=== PATIENT | female | born 1950 | race Caucasian/White ===

== ENCOUNTER 2020-11-09 19:44 | Inpatient (IN) | payer MEDICARE, MEDICAID ==
[~2020-11-09] VITALS: Ht 167.6 cm; Wt 59.8 kg
[2020-11-09] MEDS ORDERED: ONDANSETRON ODT 4 MG PO PRN (21:00)
[2020-11-09] MEDS ORDERED: BISACODYL 10 MG SUPP PR PRN (21:00)
[2020-11-09] MEDS ORDERED: POLYETHYLENE GLYCOL 17 GM PACKET PO PRN (21:00)
[2020-11-09 22:39] VITALS: BP 200/79
[2020-11-10] MEDS ORDERED: ALBUTEROL HFA 90 MCG/SPRAY INH PRN (01:00)
[2020-11-10 06:09] LABS: CHOL/HDL RATIO 2.6; FREE T4 (FREE THYROXINE) 0.9 ng/dL (0.76-1.46); LDL/HDL RATIO 1.3 (0.5-3.0)
[2020-11-10 07:47] VITALS: BP 180/93
[2020-11-10 08:47] LABS: MICROSCOPIC INDICATED
[2020-11-10] MEDS: AMLODIPINE 5 MG TABLET PO SCH (09:20)
[2020-11-10 11:04] LABS: BASOPHILS % (AUTO) 1 % (0-1); EOSINOPHILS % (AUTO) 1 % (1-7); LYMPHOCYTES % (AUTO) 16 % (22-44); MEAN CORPUSCULAR HEMOGLOBIN 35.4 pg (27.0-34.8); MEAN CORPUSCULAR HGB CONC 33.1 g/dL (32.4-35.8); MEAN PLATELET VOLUME 8.5 fL (7.4-10.4); MONOCYTES % (AUTO) 14 % (2-9); NEUTROPHILS % (AUTO) 68 % (42-75); PLATELET COUNT 200 x10^3/uL (130-400); RED BLOOD COUNT 3.81 x10^6/uL (3.82-5.3); RED CELL DISTRIBUTION WIDTH 19.5 % (9.6-15.2)
[2020-11-10 11:15] LABS: ALANINE AMINOTRANSFERASE 37 U/L (12-78); ALBUMIN 2.8 g/dL (3.4-5.0); ANION GAP 4 mmol/L (5-15); CALCIUM 8.7 mg/dL (8.5-10.1); CHLORIDE 110 mmol/L (98-107); CREATININE 1.06 mg/dL (0.55-1.02)
[2020-11-10 11:18] LABS: ALKALINE PHOSPHATASE 71 U/L (45-117); BILIRUBIN,TOTAL 0.4 mg/dL (0.2-1.0); TOTAL PROTEIN 6.2 g/dL (6.4-8.2)
[2020-11-10 11:31] LABS: MD SCAN
[2020-11-10] MEDS: VENLAFAXINE XR 37.5MG CAP.ER.24H PO SCH (17:00)
[2020-11-10 20:06] VITALS: BP 162/89
[2020-11-11 07:28] VITALS: BP 173/69
[2020-11-11] MEDS: VENLAFAXINE XR 37.5MG CAP.ER.24H PO SCH (08:06)
[2020-11-11] MEDS: AMLODIPINE 5 MG TABLET PO SCH (08:06)
[2020-11-11] MEDS: NICOTINE 14MG/24 HR PATCH.TD24 TD SCH (08:07)
[2020-11-11] MEDS ORDERED: AMLODIPINE 5 MG TABLET PO ONE (11:30)
[2020-11-11] MEDS ORDERED: LISINOPRIL 20 MG TABLET PO SCH (11:30)
[2020-11-11] MEDS ORDERED: AMLODIPINE 5 MG TABLET ONE (11:33)
[2020-11-11] MEDS ORDERED: LISINOPRIL 20 MG TABLET ONE (11:33)
[2020-11-11 13:08] VITALS: BP 157/69
[2020-11-11 20:12] VITALS: BP 151/84
[2020-11-12 07:01] VITALS: BP 152/72
[2020-11-12] MEDS: AMLODIPINE 10 MG TAB PO SCH (08:04)
[2020-11-12] MEDS: VENLAFAXINE XR 37.5MG CAP.ER.24H PO SCH (08:04)
[2020-11-12] MEDS: LISINOPRIL 40 MG TABLET PO SCH (08:05)
[2020-11-12] MEDS: NICOTINE 14MG/24 HR PATCH.TD24 TD SCH (08:05)
[2020-11-12] MEDS: CYANOCOBALAMIN 1,000 MCG TABLET PO SCH (08:05)
[2020-11-12 20:00] VITALS: BP 136/77
[2020-11-13 07:46] VITALS: BP 118/70
[2020-11-13] MEDS: LISINOPRIL 40 MG TABLET PO SCH (08:11)
[2020-11-13] MEDS: VENLAFAXINE XR 37.5MG CAP.ER.24H PO SCH (08:11)
[2020-11-13] MEDS: CYANOCOBALAMIN 1,000 MCG TABLET PO SCH (08:11)
[2020-11-13] MEDS: AMLODIPINE 10 MG TAB PO SCH (08:11)
[2020-11-13] MEDS: NICOTINE 14MG/24 HR PATCH.TD24 TD SCH (08:12)
[2020-11-13 19:57] VITALS: BP 116/70
[2020-11-14 07:55] VITALS: BP 123/75
[2020-11-14] MEDS: NICOTINE 14MG/24 HR PATCH.TD24 TD SCH (08:49)
[2020-11-14] MEDS: LISINOPRIL 40 MG TABLET PO SCH (08:49)
[2020-11-14] MEDS: VENLAFAXINE XR 37.5MG CAP.ER.24H PO SCH (08:49)
[2020-11-14] MEDS: CYANOCOBALAMIN 1,000 MCG TABLET PO SCH (08:49)
[2020-11-14] MEDS: AMLODIPINE 10 MG TAB PO SCH (08:49)
[2020-11-14 19:40] VITALS: BP 124/71
[2020-11-15 07:49] VITALS: BP 155/78
[2020-11-15] MEDS: VENLAFAXINE XR 37.5MG CAP.ER.24H PO SCH (08:32)
[2020-11-15] MEDS: AMLODIPINE 10 MG TAB PO SCH (08:32)
[2020-11-15] MEDS: LISINOPRIL 40 MG TABLET PO SCH (08:32)
[2020-11-15] MEDS: NICOTINE 14MG/24 HR PATCH.TD24 TD SCH (08:32)
[2020-11-15] MEDS: CYANOCOBALAMIN 1,000 MCG TABLET PO SCH (08:32)
[2020-11-15] MEDS ORDERED: BICILLIN-LA 2,400,000 UNITS/4 ML IM SCH (09:30)
[2020-11-15] MEDS: BICILLIN-LA 2,400,000 UNITS/4 ML IM SCH (12:17)
[2020-11-15 20:01] VITALS: BP 124/73
[2020-11-16 07:52] VITALS: BP 127/57
[2020-11-16] MEDS: NICOTINE 14MG/24 HR PATCH.TD24 TD SCH (09:13)
[2020-11-16] MEDS: VENLAFAXINE XR 37.5MG CAP.ER.24H PO SCH (09:14)
[2020-11-16] MEDS: AMLODIPINE 10 MG TAB PO SCH (09:14)
[2020-11-16] MEDS: CYANOCOBALAMIN 1,000 MCG TABLET PO SCH (09:14)
[2020-11-16] MEDS: LISINOPRIL 40 MG TABLET PO SCH (09:14)
[2020-11-16 19:13] VITALS: BP 108/68
[2020-11-17 07:53] VITALS: BP 109/75
[2020-11-17] MEDS: AMLODIPINE 10 MG TAB PO SCH (08:27)
[2020-11-17] MEDS: NICOTINE 14MG/24 HR PATCH.TD24 TD SCH (08:27)
[2020-11-17] MEDS: VENLAFAXINE XR 37.5MG CAP.ER.24H PO SCH (08:28)
[2020-11-17] MEDS: CYANOCOBALAMIN 1,000 MCG TABLET PO SCH (08:28)
[2020-11-17] MEDS: LISINOPRIL 40 MG TABLET PO SCH (08:28)
[2020-11-17] MEDS: DOCUSATE 100 MG CAPSULE PO PRN (13:59)
[2020-11-17 19:57] VITALS: BP 117/73
[2020-11-18 07:49] VITALS: BP 122/72
[2020-11-18] MEDS: LISINOPRIL 40 MG TABLET PO SCH (08:29)
[2020-11-18] MEDS: DOCUSATE 100 MG CAPSULE PO PRN (08:29)
[2020-11-18] MEDS: NICOTINE 14MG/24 HR PATCH.TD24 TD SCH (08:29)
[2020-11-18] MEDS: VENLAFAXINE XR 37.5MG CAP.ER.24H PO SCH (08:30)
[2020-11-18] MEDS: AMLODIPINE 10 MG TAB PO SCH (08:30)
[2020-11-18] MEDS: CYANOCOBALAMIN 1,000 MCG TABLET PO SCH (08:30)
[2020-11-18 19:57] VITALS: BP 115/78
[2020-11-19 07:06] VITALS: BP 101/68
[2020-11-19] MEDS: AMLODIPINE 10 MG TAB PO SCH (08:22)
[2020-11-19] MEDS: VENLAFAXINE XR 37.5MG CAP.ER.24H PO SCH (08:22)
[2020-11-19] MEDS: LISINOPRIL 40 MG TABLET PO SCH (08:22)
[2020-11-19] MEDS: CYANOCOBALAMIN 1,000 MCG TABLET PO SCH (08:23)
[2020-11-19] MEDS: NICOTINE 14MG/24 HR PATCH.TD24 TD SCH (08:23)
[2020-11-19 19:06] VITALS: BP 99/63
[2020-11-19] MEDS: DOCUSATE 100 MG CAPSULE PO PRN (20:47)
[2020-11-19] MEDS: QUETIAPINE 25MG TABLET PO PRN (21:08)
[2020-11-20] MEDS: DOCUSATE 100 MG CAPSULE PO PRN (08:22)
[2020-11-20] MEDS: CYANOCOBALAMIN 1,000 MCG TABLET PO SCH (08:22)
[2020-11-20] MEDS: VENLAFAXINE XR 37.5MG CAP.ER.24H PO SCH (08:22)
[2020-11-20] MEDS: NICOTINE 14MG/24 HR PATCH.TD24 TD SCH (08:22)
[2020-11-20] MEDS: AMLODIPINE 10 MG TAB PO SCH (08:22)
[2020-11-20] MEDS: QUETIAPINE 25MG TABLET PO PRN (08:22)
[2020-11-20] MEDS: LISINOPRIL 40 MG TABLET PO SCH (08:23)
[2020-11-20 19:50] VITALS: BP_SYST 101; BP_SYST 113; BP_DIAS 67; BP_DIAS 80
[2020-11-21 07:52] VITALS: BP 112/69
[2020-11-21] MEDS: AMLODIPINE 10 MG TAB PO SCH (08:02)
[2020-11-21] MEDS: CYANOCOBALAMIN 1,000 MCG TABLET PO SCH (08:02)
[2020-11-21] MEDS: NICOTINE 14MG/24 HR PATCH.TD24 TD SCH (08:02)
[2020-11-21] MEDS: LISINOPRIL 40 MG TABLET PO SCH (08:02)
[2020-11-21] MEDS: VENLAFAXINE XR 37.5MG CAP.ER.24H PO SCH (08:02)
[2020-11-21 19:47] VITALS: BP 103/68
[2020-11-22 07:10] VITALS: BP 98/63
[2020-11-22] MEDS: VENLAFAXINE XR 37.5MG CAP.ER.24H PO SCH (08:42)
[2020-11-22] MEDS: NICOTINE 14MG/24 HR PATCH.TD24 TD SCH (08:42)
[2020-11-22] MEDS: AMLODIPINE 10 MG TAB PO SCH (08:42)
[2020-11-22] MEDS: LISINOPRIL 40 MG TABLET PO SCH (08:42)
[2020-11-22] MEDS: CYANOCOBALAMIN 1,000 MCG TABLET PO SCH (08:42)
[2020-11-22] MEDS: DOCUSATE 100 MG CAPSULE PO PRN (08:53)
[2020-11-22] MEDS: BICILLIN-LA 2,400,000 UNITS/4 ML IM SCH (14:41)
[2020-11-22 18:23] VITALS: BP 124/79
[2020-11-22] MEDS: QUETIAPINE 25MG TABLET PO PRN (20:42)
[2020-11-22] MEDS: ACETAMINOPHEN 325 MG TABLET PO PRN (22:40)
[2020-11-23 07:57] VITALS: BP 108/70
[2020-11-23] MEDS: AMLODIPINE 10 MG TAB PO SCH (09:00)
[2020-11-23] MEDS: VENLAFAXINE XR 37.5MG CAP.ER.24H PO SCH (09:14)
[2020-11-23] MEDS: CYANOCOBALAMIN 1,000 MCG TABLET PO SCH (09:14)
[2020-11-23] MEDS: LISINOPRIL 40 MG TABLET PO SCH (09:14)
[2020-11-23] MEDS: NICOTINE 14MG/24 HR PATCH.TD24 TD SCH (09:15)
[2020-11-23] MEDS: DOCUSATE 100 MG CAPSULE PO PRN ×2 (09:20→20:22)
[2020-11-23] MEDS: QUETIAPINE 25MG TABLET PO PRN ×2 (09:31→20:22)
[2020-11-23 19:30] VITALS: BP 100/61
[2020-11-23] MEDS: ACETAMINOPHEN 325 MG TABLET PO PRN (20:22)
[2020-11-24 07:37] VITALS: BP 99/66
[2020-11-24] MEDS: NICOTINE 14MG/24 HR PATCH.TD24 TD SCH (09:01)
[2020-11-24] MEDS: AMLODIPINE 10 MG TAB PO SCH (09:02)
[2020-11-24] MEDS: VENLAFAXINE XR 37.5MG CAP.ER.24H PO SCH (09:02)
[2020-11-24] MEDS: CYANOCOBALAMIN 1,000 MCG TABLET PO SCH (09:02)
[2020-11-24] MEDS: LISINOPRIL 40 MG TABLET PO SCH (09:02)
[2020-11-24] MEDS: DOCUSATE 100 MG CAPSULE PO PRN (09:05)
[2020-11-24 19:39] VITALS: BP 101/65
[2020-11-24] MEDS: QUETIAPINE 25MG TABLET PO PRN (21:28)
[2020-11-25 07:19] VITALS: BP 106/66
[2020-11-25] MEDS: CYANOCOBALAMIN 1,000 MCG TABLET PO SCH (08:48)
[2020-11-25] MEDS: LISINOPRIL 40 MG TABLET PO SCH (08:48)
[2020-11-25] MEDS: VENLAFAXINE XR 37.5MG CAP.ER.24H PO SCH (08:48)
[2020-11-25] MEDS: AMLODIPINE 10 MG TAB PO SCH (08:48)
[2020-11-25] MEDS: NICOTINE 14MG/24 HR PATCH.TD24 TD SCH (08:49)
[2020-11-25] MEDS: QUETIAPINE 25MG TABLET PO PRN (09:11)
[2020-11-25 18:22] VITALS: BP 109/64
[2020-11-26 07:47] VITALS: BP 105/66
[2020-11-26] MEDS: LISINOPRIL 40 MG TABLET PO SCH (08:00)
[2020-11-26] MEDS: AMLODIPINE 10 MG TAB PO SCH (08:00)
[2020-11-26] MEDS: VENLAFAXINE XR 37.5MG CAP.ER.24H PO SCH (08:00)
[2020-11-26] MEDS: CYANOCOBALAMIN 1,000 MCG TABLET PO SCH (08:01)
[2020-11-26] MEDS: NICOTINE 14MG/24 HR PATCH.TD24 TD SCH (08:01)
[2020-11-26] MEDS: QUETIAPINE 25MG TABLET PO PRN ×2 (09:29→21:16)
[2020-11-26 19:35] VITALS: BP 107/72
[2020-11-27 07:10] VITALS: BP 119/75
[2020-11-27] MEDS: VENLAFAXINE XR 37.5MG CAP.ER.24H PO SCH (07:37)
[2020-11-27] MEDS: LISINOPRIL 40 MG TABLET PO SCH (07:37)
[2020-11-27] MEDS: CYANOCOBALAMIN 1,000 MCG TABLET PO SCH (07:37)
[2020-11-27] MEDS: AMLODIPINE 10 MG TAB PO SCH (07:37)
[2020-11-27] MEDS: NICOTINE 14MG/24 HR PATCH.TD24 TD SCH (07:38)
[2020-11-27] MEDS: QUETIAPINE 25MG TABLET PO PRN ×2 (10:08→20:48)
[2020-11-27 19:45] VITALS: BP 108/72
[2020-11-28 07:53] VITALS: BP 100/67
[2020-11-28] MEDS: LISINOPRIL 40 MG TABLET PO SCH (08:25)
[2020-11-28] MEDS: AMLODIPINE 10 MG TAB PO SCH (08:25)
[2020-11-28] MEDS: VENLAFAXINE XR 37.5MG CAP.ER.24H PO SCH (08:25)
[2020-11-28] MEDS: NICOTINE 14MG/24 HR PATCH.TD24 TD SCH (08:26)
[2020-11-28] MEDS: CYANOCOBALAMIN 1,000 MCG TABLET PO SCH (08:26)
[2020-11-28] MEDS: QUETIAPINE 25MG TABLET PO PRN ×2 (08:54→20:39)
[2020-11-28 20:05] VITALS: BP 100/64
[2020-11-29 07:08] VITALS: BP 95/63
[2020-11-29] MEDS: NICOTINE 14MG/24 HR PATCH.TD24 TD SCH (08:40)
[2020-11-29] MEDS: LISINOPRIL 40 MG TABLET PO SCH (08:40)
[2020-11-29] MEDS: AMLODIPINE 10 MG TAB PO SCH (08:40)
[2020-11-29] MEDS: VENLAFAXINE XR 37.5MG CAP.ER.24H PO SCH (08:40)
[2020-11-29] MEDS: CYANOCOBALAMIN 1,000 MCG TABLET PO SCH (08:43)
[2020-11-29] MEDS: QUETIAPINE 25MG TABLET PO PRN ×2 (10:20→21:15)
[2020-11-29 19:30] VITALS: BP 100/60
[2020-11-30 07:48] VITALS: BP 111/73
[2020-11-30] MEDS: CYANOCOBALAMIN 1,000 MCG TABLET PO SCH (08:40)
[2020-11-30] MEDS: AMLODIPINE 10 MG TAB PO SCH (08:40)
[2020-11-30] MEDS: VENLAFAXINE XR 37.5MG CAP.ER.24H PO SCH (08:40)
[2020-11-30] MEDS: LISINOPRIL 40 MG TABLET PO SCH (08:40)
[2020-11-30] MEDS: NICOTINE 14MG/24 HR PATCH.TD24 TD SCH (08:41)
[2020-11-30] MEDS: QUETIAPINE 25MG TABLET PO PRN ×2 (09:34→21:31)
[2020-11-30] MEDS: DOCUSATE 100 MG CAPSULE PO PRN (09:47)
[2020-11-30 19:22] VITALS: BP 116/75
[2020-12-01 07:35] VITALS: BP 105/64
[2020-12-01] MEDS: LISINOPRIL 40 MG TABLET PO SCH (08:36)
[2020-12-01] MEDS: AMLODIPINE 10 MG TAB PO SCH (08:36)
[2020-12-01] MEDS: NICOTINE 14MG/24 HR PATCH.TD24 TD SCH (08:36)
[2020-12-01] MEDS: VENLAFAXINE XR 37.5MG CAP.ER.24H PO SCH (08:36)
[2020-12-01] MEDS: CYANOCOBALAMIN 1,000 MCG TABLET PO SCH (08:36)
[2020-12-01] MEDS: QUETIAPINE 25MG TABLET PO PRN ×2 (09:05→16:50)
[2020-12-01 19:30] VITALS: BP 92/52
[2020-12-02 07:39] VITALS: BP 120/65
[2020-12-02] MEDS: LISINOPRIL 40 MG TABLET PO SCH (08:30)
[2020-12-02] MEDS: QUETIAPINE 25MG TABLET PO PRN ×2 (08:30→16:21)
[2020-12-02] MEDS: VENLAFAXINE XR 37.5MG CAP.ER.24H PO SCH (08:30)
[2020-12-02] MEDS: AMLODIPINE 10 MG TAB PO SCH (08:30)
[2020-12-02] MEDS: CYANOCOBALAMIN 1,000 MCG TABLET PO SCH (08:30)
[2020-12-02] MEDS: NICOTINE 14MG/24 HR PATCH.TD24 TD SCH (08:31)
[2020-12-02 19:32] VITALS: BP 100/63
[2020-12-03 07:57] VITALS: BP 123/71
[2020-12-03] MEDS: LISINOPRIL 40 MG TABLET PO SCH (08:00)
[2020-12-03] MEDS: VENLAFAXINE XR 37.5MG CAP.ER.24H PO SCH (08:00)
[2020-12-03] MEDS: CYANOCOBALAMIN 1,000 MCG TABLET PO SCH (08:00)
[2020-12-03] MEDS: AMLODIPINE 10 MG TAB PO SCH (08:00)
[2020-12-03] MEDS: NICOTINE 14MG/24 HR PATCH.TD24 TD SCH (08:02)
[2020-12-03] MEDS: QUETIAPINE 25MG TABLET PO PRN ×2 (09:27→18:07)
[2020-12-03 19:24] VITALS: BP 108/70
[2020-12-04 07:34] VITALS: BP 128/67
[2020-12-04] MEDS: VENLAFAXINE XR 37.5MG CAP.ER.24H PO SCH (07:40)
[2020-12-04] MEDS: QUETIAPINE 25MG TABLET PO PRN ×2 (07:40→20:25)
[2020-12-04] MEDS: LISINOPRIL 40 MG TABLET PO SCH (07:40)
[2020-12-04] MEDS: CYANOCOBALAMIN 1,000 MCG TABLET PO SCH (07:40)
[2020-12-04] MEDS: AMLODIPINE 10 MG TAB PO SCH (07:40)
[2020-12-04] MEDS: NICOTINE 14MG/24 HR PATCH.TD24 TD SCH (07:41)
[2020-12-04 19:28] VITALS: BP 108/72
[2020-12-05] MEDS: QUETIAPINE 25MG TABLET PO PRN ×2 (07:38→20:04)
[2020-12-05] MEDS: LISINOPRIL 40 MG TABLET PO SCH (07:38)
[2020-12-05] MEDS: VENLAFAXINE XR 37.5MG CAP.ER.24H PO SCH (07:39)
[2020-12-05] MEDS: AMLODIPINE 10 MG TAB PO SCH (07:39)
[2020-12-05] MEDS: CYANOCOBALAMIN 1,000 MCG TABLET PO SCH (07:39)
[2020-12-05] MEDS: NICOTINE 14MG/24 HR PATCH.TD24 TD SCH (07:40)
[2020-12-05] MEDS: DOCUSATE 100 MG CAPSULE PO PRN (07:43)
[2020-12-05 09:12] VITALS: BP 89/58
[2020-12-05 18:35] VITALS: BP 114/71
[2020-12-06 07:34] VITALS: BP 113/60
[2020-12-06] MEDS: VENLAFAXINE XR 37.5MG CAP.ER.24H PO SCH (08:13)
[2020-12-06] MEDS: LISINOPRIL 40 MG TABLET PO SCH (08:13)
[2020-12-06] MEDS: AMLODIPINE 10 MG TAB PO SCH (08:13)
[2020-12-06] MEDS: CYANOCOBALAMIN 1,000 MCG TABLET PO SCH (08:13)
[2020-12-06] MEDS: NICOTINE 14MG/24 HR PATCH.TD24 TD SCH (08:14)
[2020-12-06] MEDS: DOCUSATE 100 MG CAPSULE PO PRN (09:04)
[2020-12-06] MEDS: QUETIAPINE 25MG TABLET PO PRN ×2 (09:05→21:08)
[2020-12-06 19:40] VITALS: BP 97/63
[2020-12-07 07:00] VITALS: BP 115/73
[2020-12-07] MEDS: QUETIAPINE 25MG TABLET PO PRN ×2 (08:41→20:13)
[2020-12-07] MEDS: AMLODIPINE 10 MG TAB PO SCH (08:41)
[2020-12-07] MEDS: CYANOCOBALAMIN 1,000 MCG TABLET PO SCH (08:41)
[2020-12-07] MEDS: DOCUSATE 100 MG CAPSULE PO PRN (08:41)
[2020-12-07] MEDS: VENLAFAXINE XR 37.5MG CAP.ER.24H PO SCH (08:42)
[2020-12-07] MEDS: NICOTINE 14MG/24 HR PATCH.TD24 TD SCH (08:42)
[2020-12-07] MEDS: LISINOPRIL 40 MG TABLET PO SCH (08:42)
[2020-12-07] MEDS ORDERED: NICO-486 TD (15:38)
[2020-12-07] MEDS ORDERED: VENL37.52 PO (15:38)
[2020-12-07] MEDS ORDERED: QUET25TA7 PO (15:38)
[2020-12-07] MEDS ORDERED: AMLO-211 PO (15:38)
[2020-12-07] MEDS ORDERED: ALBU18HF INH (15:38)
[2020-12-07] MEDS ORDERED: Cyanocobalamin PO (15:38)
[2020-12-07] MEDS ORDERED: LISI40TA9 PO (15:38)
[2020-12-07 19:31] VITALS: BP 101/64
[2020-12-08 07:39] VITALS: BP 129/88
[2020-12-08] MEDS: VENLAFAXINE XR 37.5MG CAP.ER.24H PO SCH (08:01)
[2020-12-08] MEDS: CYANOCOBALAMIN 1,000 MCG TABLET PO SCH (08:01)
[2020-12-08] MEDS: AMLODIPINE 10 MG TAB PO SCH (08:01)
[2020-12-08] MEDS: NICOTINE 14MG/24 HR PATCH.TD24 TD SCH (08:01)
[2020-12-08] MEDS: LISINOPRIL 40 MG TABLET PO SCH (08:01)
== END 2020-12-08 08:05 | disposition home or self-care (01) | DRG 885 ==
LOC: 3E 22:11
PROVIDERS: ADMIT Psychiatry & Neurology Psychosomatic Medicine; ATTEND Psychiatry & Neurology Psychosomatic Medicine
DX: F33.2 Major depressive disorder, recurrent severe without psychotic features (principal); R45.851 Suicidal ideations; J96.10 Chronic respiratory failure, unspecified whether with hypoxia or hypercapnia; F10.231 Alcohol dependence with withdrawal delirium; E53.8 Deficiency of other specified B group vitamins; G31.84 Mild cognitive impairment of uncertain or unknown etiology; I10 Essential (primary) hypertension; J44.9 Chronic obstructive pulmonary disease, unspecified; F17.210 Nicotine dependence, cigarettes, uncomplicated; A53.0 Latent syphilis, unspecified as early or late; I16.0 Hypertensive urgency; Z91.19 Patient's noncompliance with other medical treatment and regimen
CPT/HCPCS: 36415; 80053; 80061; 81001; 84439; 84443; 85025; J0561; Q0162; 92523-GN